=== PATIENT | male | born 1960 | race Caucasian/White ===

== ENCOUNTER 2016-09-28 12:39 | Day surgery (SDC) | payer BC, OTHER ==
[~2016-09-28] VITALS: Ht 175.3 cm; Wt 83.2 kg
[~2016-09-28 12:39] MED LIST: AMLO5TAB2 PO
[2016-09-28] MEDS ORDERED: LACTATED RINGERS 1,000 ML IV SCH (12:58)
[2016-09-28 13:01] VITALS: BP 145/76
[2016-09-28] MEDS ORDERED: METOPROLOL 1 MG/ML, 5ML IV PRN (14:30)
[2016-09-28] MEDS ORDERED: EPHEDRINE 50 MG/ML, 1ML IVPush PRN (14:30)
[2016-09-28] MEDS ORDERED: ACETAMINOPHEN 325 MG TABLET PO PRN (14:30)
[2016-09-28] MEDS ORDERED: FENTANYL PF 100 MCG/2ML IV PRN (14:30)
[2016-09-28] MEDS ORDERED: MEPERIDINE/PF 25MG/0.5ML IVPush PRN (14:30)
[2016-09-28] MEDS ORDERED: LABETALOL 5MG/ML, 20ML IV PRN (14:30)
[2016-09-28] MEDS ORDERED: hydrALAzine 20 MG/ML, 1ML IV PRN (14:30)
[2016-09-28] MEDS ORDERED: ONDANSETRON 2MG/ML, 2ML IVPush PRN (14:30)
[2016-09-28] MEDS ORDERED: ALBUTEROL SULFATE 2.5 MG/3 ML NPPB PRN (14:30)
[2016-09-28] MEDS ORDERED: OXYcodone 5 MG/5 ML ORAL.SOL UDC PO PRN (14:30)
[2016-09-28] MEDS ORDERED: HYDROmorphone 1 MG/ML, 1ML IV PRN (14:30)
[2016-09-28] MEDS ORDERED: ROPIvacaine/PF 0.5%, 30 ML ONE ×2 (14:55→16:45)
[2016-09-28] MEDS ORDERED: LIDOCAINE 0.5%-EPI 1:200K, 50ML ONE (14:55)
[2016-09-28] MEDS ORDERED: FENTANYL PF 100 MCG/2ML ONE (15:06)
[2016-09-28] MEDS ORDERED: MIDAZOLAM 1 MG/ML, 2ML ONE (15:06)
[2016-09-28] MEDS ORDERED: DEXAMETHASONE 4 MG/ML, 1ML ONE (15:47)
[2016-09-28] MEDS ORDERED: CEFAZOLIN 1,000 MG ONE (15:47)
[2016-09-28] MEDS ORDERED: NEOSTIGMINE 1 MG/ML, 10ML ONE (15:47)
[2016-09-28] MEDS ORDERED: PROPOFOL 10 MG/ML, 20ML ONE (15:47)
[2016-09-28] MEDS ORDERED: GLYCOPYRROLATE 0.2MG/1ML ONE (15:47)
[2016-09-28] MEDS ORDERED: ROCURONIUM 10 MG/ML ONE (15:47)
[2016-09-28] MEDS ORDERED: CLINDAMYCIN 150 MG/ML, 6ML ONE (16:08)
[2016-09-29] MEDS ORDERED: AMLODIPINE 5 MG TABLET PO SCH (09:00)
== END 2016-09-28 18:50 ==
LOC: OUT 12:39
PROVIDERS: ATTEND Orthopaedic Surgery
DX: S43.431A Superior glenoid labrum lesion of right shoulder, initial encounter (principal); M25.511 Pain in right shoulder; M94.211 Chondromalacia, right shoulder; M75.111 Incomplete rotator cuff tear or rupture of right shoulder, not specified as traumatic; I10 Essential (primary) hypertension; M19.011 Primary osteoarthritis, right shoulder; X58.XXXA Exposure to other specified factors, initial encounter; Y93.89 Activity, other specified; Y92.89 Other specified places as the place of occurrence of the external cause; Y99.8 Other external cause status
CPT/HCPCS: 23430; 29823; 29824; 29826; J2250; J2795; J3010; J7120; J0690; J1100; J2704; J2710; J3490; C1713

== ENCOUNTER → 2017-05-26 | Outpatient (CLI) | payer BC, OTHER ==
[~2017-05-26] MED LIST changes: +BISO5TAB2 PO
== END ==
LOC: STAR 09:27
PROVIDERS: ATTEND Orthopaedic Surgery
DX: Z02.9 Encounter for administrative examinations, unspecified (principal)

== ENCOUNTER 2017-05-31 07:20 | Day surgery (SDC) | payer BC, OTHER ==
[~2017-05-31] VITALS: Ht 172.7 cm; Wt 87.4 kg
[~2017-05-31 07:20] MED LIST changes: +BUPIVACAINE/PF 0.5% ONE; +EPINEPHRINE 1 MG/ML, 1ML ONE; +LIDOCAINE 1%, 50ML ONE
[2017-05-31] MEDS ORDERED: LACTATED RINGERS 1,000 ML IV SCH (07:35)
[2017-05-31 07:36] VITALS: BP 132/81
[2017-05-31] MEDS ORDERED: DEXAMETHASONE 4 MG/ML, 1ML ONE (07:37)
[2017-05-31] MEDS ORDERED: BUPIVACAINE/PF 0.5% ONE (07:37)
[2017-05-31] MEDS ORDERED: FENTANYL PF 100 MCG/2ML ONE (07:37)
[2017-05-31] MEDS ORDERED: ONDANSETRON 2MG/ML, 2ML ONE (07:37)
[2017-05-31] MEDS ORDERED: MIDAZOLAM 1 MG/ML, 2ML ONE (07:37)
[2017-05-31] MEDS ORDERED: LIDOCAINE-MPF 2% ,5ML ONE (07:37)
[2017-05-31] MEDS ORDERED: PROPOFOL 10 MG/ML, 20ML ONE (07:37)
[2017-05-31] MEDS ORDERED: CEFAZOLIN 1,000 MG ONE (07:37)
[2017-05-31] MEDS ORDERED: LIDOCAINE GEL 2%, 5ML ONE (07:43)
[2017-05-31] MEDS ORDERED: GABAPENTIN 300 MG CAPSULE PO ONE (08:00)
[2017-05-31] MEDS ORDERED: ACETAMINOPHEN 500 MG TABLET PO ONE (08:00)
[2017-05-31] MEDS ORDERED: ONDANSETRON ODT 8 MG PO ONE (08:00)
[2017-05-31] MEDS ORDERED: ROCURONIUM 10 MG/ML,10ML ONE (08:47)
[2017-05-31] MEDS ORDERED: SUCCINYLCHOLINE 20 MG/ML, 10ML ONE (08:47)
[2017-05-31] MEDS ORDERED: TEMPLATE NON-FORMULARY MED. (Bisoprolol Fumarate 5 MG) PO SCH (09:00)
[2017-05-31] MEDS ORDERED: AMLODIPINE 5 MG TABLET PO SCH (09:00)
[2017-05-31] MEDS ORDERED: hydrALAzine 20 MG/ML, 1ML IV PRN (09:30)
[2017-05-31] MEDS ORDERED: PROMETHAZINE 25 MG/ML, 1ML IV PRN (09:30)
[2017-05-31] MEDS ORDERED: ALBUTEROL/IPRATROPIUM 2.5MG/0.5MG, 3 ML NPPB PRN (09:30)
[2017-05-31] MEDS ORDERED: LABETALOL 5MG/ML, 20ML IV PRN (09:30)
[2017-05-31] MEDS ORDERED: FENTANYL PF 100 MCG/2ML IV PRN (09:30)
[2017-05-31] MEDS ORDERED: morphine SULFATE 10 MG/ML, 1ML IV PRN (09:30)
[2017-05-31] MEDS ORDERED: DIAZEPAM 5 MG/ML, 2ML IVPush PRN (09:30)
[2017-05-31] MEDS ORDERED: OXYcodone 5 MG/5 ML ORAL.SOL UDC PO PRN (09:30)
[2017-05-31] MEDS ORDERED: PROMETHAZINE 12.5 MG SUPP PR PRN (09:30)
[2017-05-31] MEDS ORDERED: MEPERIDINE/PF 25MG/0.5ML IVPush PRN (09:30)
[2017-05-31] MEDS ORDERED: MIDAZOLAM 1 MG/ML, 2ML IV PRN (09:30)
[2017-05-31] MEDS ORDERED: METOCLOPRAMIDE 5 MG/ML, 2ML IV PRN (09:30)
[2017-05-31] MEDS ORDERED: ONDANSETRON 2MG/ML, 2ML IVPush PRN (09:30)
== END 2017-05-31 13:55 ==
LOC: OUT 07:20
PROVIDERS: ATTEND Orthopaedic Surgery
DX: M75.112 Incomplete rotator cuff tear or rupture of left shoulder, not specified as traumatic (principal); M66.822 Spontaneous rupture of other tendons, left upper arm; M24.112 Other articular cartilage disorders, left shoulder; M75.42 Impingement syndrome of left shoulder; M19.012 Primary osteoarthritis, left shoulder
CPT/HCPCS: 29822; 29824; 29826; 29827; 29828; C1713; J0171; J0330; J0690; J1100; J2250; J2405; J2704; J3010; J3490; J7120; Q0162